=== PATIENT | male | born 1990 | race Caucasian/White ===

== ENCOUNTER 2017-10-01 18:34 | Emergency (ER) | payer OTHER ==
[2017-10-01 18:45] VITALS: BP 115/68
--- NOTE | 2017-10-01 20:24 | UC ---
Skin Complaint HPI - HPI Summary HPI Summary: Patient is a 26-year-old male presenting to the with a chief complaint of diffuse linear raised papules, plaques, vesicles which are ranged linearly or streak-like. Endorses a mild amount of pruritus and erythema to the areas. He states he was out in the brush pulling weeds as well as weed whacking over the past 2 days when he developed symptoms. He denies any fevers. He has never had this reaction before. Denies any known allergies including environmental allergies. Denies any soap changes or clothing changes. - History of Current Complaint Chief Complaint: [facility] Time Seen by Provider: 10/01/17 19:10 Stated Complaint: RASH Hx Obtained From: Patient Onset/Duration: Sudden Onset Skin Exposure Onset/Duration: Hours Ago Timing: Constant Onset Severity: Mild Current Severity: Mild Pain Intensity: 0 Pain Scale Used: 0-10 Numeric Location: Diffuse Character: Swelling, Pruritus, Hives, Redness, Raised Aggravating Factor(s): Nothing Alleviating Factor(s): Nothing Associated Signs & Symptoms: Positive: Negative Related History: Possible Reaction to: Environmental Exposure - Allergy/Home Medications Allergies/Adverse Reactions: Allergies Allergy/AdvReac Type Severity Reaction Status Date / Time No Known Allergies Allergy Verified 10/01/17 18:45 Review of Systems Constitutional: Negative Skin: Rash Eyes: Negative Respiratory: Negative Cardiovascular: Negative Motor: Negative Neurovascular: Negative Musculoskeletal: Negative Neurological: Negative Is Patient Immunocompromised?: No All Other Systems Reviewed And Are Negative: Yes PMH/Surg Hx/FS Hx/Imm Hx Previously Healthy: Yes - I - Surgical History Surgical History: None - Family History Known Family History: Positive: Unknown - Social History Occupation: Employed Full-time Lives: With Family Alcohol Use: None Substance Use Type: Marijuana Smoking Status (MU): Light Every Day Tobacco Smoker - Immunization History Most Recent Tetanus Shot: 2008 Physical Exam Triage Information Reviewed: Yes Appearance: Well-Appearing, No Pain Distress, Well-Nourished Vital Signs: Initial Vital Signs Temp 98.4 F 10/01/17 18:42 Pulse 93 10/01/17 18:42 Resp 12 10/01/17 18:42 BP 115/68 10/01/17 18:42 Pulse Ox 98 10/01/17 18:42 Vital Signs Reviewed: Yes Neck exam: Normal Neck: Positive: Supple Respiratory: Positive: Chest non-tender Cardiovascular Exam: Normal Musculoskeletal Exam: Normal Musculoskeletal: Positive: Strength Intact Neurological Exam: Normal Neurological: Positive: Alert Psychological: Positive: Normal Response To Family Skin: Positive: rashes Course/Dx - Course Course Of Treatment: During the course of treatment, the patient is evaluated for likely poison oak/ Toxicodendron dermatitis. He is given triamcinolone and prednisone for relief. - Diagnoses Provider Diagnoses: Poison [place] Dermatitis Discharge - Sign-Out/Discharge Documenting (check all that apply): Discharge/Admit/Transfer - Discharge Plan Condition: Stable Disposition: HOME Prescriptions: predniSONE TAB* [Deltasone TAB*] 50 mg PO DAILY #5 tab MDD 1 Triamcinolone 0.5% CREAM(NF) [Triamcinolone 0.5% CREAM*] 1 applic TOPICAL QID # 1 tube Patient Education Materials: Poison [place] (ED), Cold Compress or Soak (ED) Referrals: No Primary Care Phys,NOPCP [Primary Care Provider] - Additional Instructions: Likely poison oak Please use medications as directed - Billing Disposition and Condition Condition: STABLE Disposition: HOME
== END 2017-10-01 20:05 | disposition home or self-care (01) ==
LOC: UCEAST 18:34
DX: L23.7 Allergic contact dermatitis due to plants, except food (principal); F12.90 Cannabis use, unspecified, uncomplicated; F17.210 Nicotine dependence, cigarettes, uncomplicated
CPT/HCPCS: 99202; G0463